=== PATIENT | male | born 1965 | race Caucasian/White ===

== ENCOUNTER → 2017-03-30 | Emergency (ER) | payer MEDICARE ==
[~2017-03-30] VITALS: Ht 167.6 cm; Wt 81.6 kg
--- NOTE | 2017-03-30 17:11 | NUR ---
BBPA FROM 4 SEASONS: LEFT EYEBROW LACERATION S/P FELL OFF WHEELCHAIR. APPLIED PRESSURE ON LAC.
--- NOTE | 2017-03-30 17:59 | NUR ---
PT BACK FROM CT SCAN
--- NOTE | 2017-03-30 18:48 | NUR ---
CALLED [facility] FOR TRANSPORT BACK TO [facility], ETA 2015, TRIP # [id number]
--- NOTE | 2017-03-30 18:53 | NUR ---
Patient discharged to home in stable condition. Written and verbal after care instructions given. Patient verbalizes understanding of instruction.
[2017-03-30 18:54] VITALS: BP 123/65
--- NOTE | 2017-03-30 19:25 | NUR ---
REPORT GIVEN TO AMIE HENNING FOR TRANSPORT TRANSFER TO [facility]
== END | disposition home or self-care (01) ==
LOC: ER 17:07
DX: S01.112A Laceration without foreign body of left eyelid and periocular area, initial encounter (principal); N40.0 Benign prostatic hyperplasia without lower urinary tract symptoms; N18.6 End stage renal disease; Z99.3 Dependence on wheelchair; W05.0XXA Fall from non-moving wheelchair, initial encounter; W18.00XA Striking against unspecified object with subsequent fall, initial encounter; Y93.89 Activity, other specified; Y92.89 Other specified places as the place of occurrence of the external cause; Y99.8 Other external cause status
CPT/HCPCS: 12013; 70450; 99284; A4606; A6402 ×2; Z7610